=== PATIENT | female | born 1990 | race American Indian/Alaskan Native ===

== ENCOUNTER 2017-06-04 01:28 | Inpatient (IN) | payer BC, MEDICAID ==
[2017-06-04 01:42] VITALS: BMI 33.3
[2017-06-04] MEDS ORDERED: Lactated Ringer's 1,000 ML IV SCH (01:45)
[2017-06-04] MEDS ORDERED: Oxytocin 10 Units/ml Inj ONE (01:46)
[2017-06-04] MEDS ORDERED: Benzocaine/Menthol SPRAY TOP PRN ×2 (02:14→03:45)
[2017-06-04 02:20] LABS: BASO % 0.2 % (0.0-2.0); EOS % 0.3 % (0.0-4.0); HEMOGLOBIN 11.8 g/dL (12.0-16.0); LYMPH # 1.6 K/uL (1.0-4.3); LYMPH % 12.3 % (20.0-40.0); MEAN CELL VOLUME 82.3 fl (81.0-99.0); MEAN CORPUSCULAR HEMOGLOBIN 26.3 pg (27.0-31.0); MEAN CORPUSCULAR HGB CONC 31.9 g/dL (33.0-37.0); MEAN PLATELET VOLUME 10.8 fl (7.2-11.7); MONO # 0.6 K/uL (0.0-0.8); MONO % 5.1 % (0.0-10.0); NEUT # 10.4 K/uL (1.8-7.0); NEUT % 82.1 % (50.0-75.0); RBC 4.49 Mil/uL (3.80-5.20); WHITE BLOOD COUNT 12.6 K/uL (4.8-10.8)
[2017-06-04 02:32] VITALS: TEMP 98.9; O2SAT 100
[2017-06-04] MEDS: Multivitamin With Minerals Tab PO SCH (08:07)
[2017-06-04] MEDS ORDERED: Multivitamin With Minerals Tab PO SCH (09:00)
--- NOTE | 2017-06-04 09:58 | OBADHP ---
Datetime: 06/04/2017 04:05 Admit Comment, IP Provider: 26 yo at 40+1 weeks ga presented to [facility]- visibly uncomfortable and in d istress, complaining of contractions q2-3 min. Feels baby moving, denies loss of fluid. Pt stated she feels like she needs to push right away. care: [facility] GBS positive, HbsAg neg. 1st trimester HIV and RPR negative, third trimester HIV RPR unavailable. Obhx: , prior NVD, 1 TOP, 1 SAB Unable to obtain pt's whole history due to pt discomfort and stage of labor; will addendum SVE: 10cm, fully effaced, 0 station, membranes intact A: Admit to unit P: Expectant vaginal delivery; obtain HIV/RPR. Pt seen with Dr. Quijano. Pelvic Type - PN: Adequate Extremities - PN: Normal Neurologic - PN: Normal HEENT - PN: Normal General - PN: Normal Comments, ACOG Physical Exam: SVE: 10cm, fully effaced, 0 station, membranes intact Vital Signs Provider: Reviewed IP Chief Complaint: Uterine contractions Dilatation, Provider: 10 Effacement, Provider: 100 Station, Provider: 0 Genitourinary Exam: Normal DTRs - PN: Not Done EGA AdmitDate IP: 40.1 IP Adm Impression: Term, intrauterine IP Admit Plan: Admit to unit Datetime: 06/04/2017 02:15 Abdomen - PN: Not Done Back - PN: Not Done Breast - PN: Not Done Lungs - PN: Not Done Heart - PN: Not Done Thyroid - PN: Not Done
--- NOTE | 2017-06-04 10:01 | OBDS ---
DELIVERY PERSONNEL Delivery Doctor: Karla Quijano MD Blocker Hand: Lexy Patterson RN Resident: DERRICK Rider-1 MATERNAL INFORMATION Delivery Anesthesia: None Medications in Delivery: Oxytocin 20 units Estimated Blood Loss (ml): 200 Placenta Cultured: No Maternal Complications: Precipitous Labor (<3hrs) Provider Comments: Normal spontaneous vaginal delivery. Patient delivered a viable with Apgars of 9 and 9 at one and 5 minutes respectively. Placen ta delivered spontaneously. No lacerations, perineum intact. Uterus firm and appropriately hemostatic following delivery. No complications. Estimated blood loss 200 mL. LABOR SUMMARY EDC: 06/03/2017 00:00 No. Babies in Womb: 1 Attempted: No Labor Anesthesia: None LABOR INFORMATION Reason for Induction: Not Applicable Onset of Labor: 06/03/2017 19:00 Complete Dilatation: 06/04/2017 01:48 Oxytocin: N/A Group B Beta Strep: Positive Antibiotics # of Doses: 0 Steroids Given: None Reason Steroids Not Administered: Not Applicable MEMBRANES Membranes Rupture Method: Artificial Rupture of Membranes: 06/04/2017 01:48 Length of Rupture (hrs): 0.13 Amniotic Fluid Color: Clear Amniotic Fluid Amount: Large Amniotic Fluid Odor: Normal STAGES OF LABOR Stage 1 hrs: 6 Stage 1 min: 48 Stage 2 hrs: 0 Stage 2 min: 8 Stage 3 hrs: 0 Stage 3 min: 3 Total Time in Labor hrs: 6 Total Time in Labor min: 59 VAGINAL DELIVERY Episiotomy: None Laceration Extension: N/A Laceration Type: None Laceration Repair: Not Applicable Initial Vag Sponge Count: 5 Final Vag Sponge Count: 5 Initial Vag Sharps Count: 0 Final Vag Sharps Count: 0 Sponge Count Correct: N/A Sharps Count Correct: N/A BABY A INFORMATION Delivery Date/Time: 06/04/2017 01:56 Method of Delivery: Vaginal Born in Route : No : N/A Forceps: N/A Vacuum Extraction: N/A Shoulder Dystocia : No SHOULDER DYSTOCIA BABY A Delivery Date/Time: 06/04/2017 01:56 PRESENTATION/POSITION BABY A Presentation: Cephalic Cephalic Presentation: Vertex PLACENTA INFORMATION BABY A Placenta Delivery Time : 06/04/2017 01:59 Placenta Method of Delivery: Spontaneous Placenta Status: Delivered SCORES BABY A Heart Rate 1 min: >100 bpm Resp Effort 1 min: Good Cry Reflex Irritability 1 min: Cough or Sneeze or Pulls Away Muscle Tone 1 min: Active Motion Color 1 min: Body [place], Extremities Blue Resuscitation Effort 1 min: Tactile Stimulation SCORE 1 MIN: 9 Heart Rate 5 min: >100 bpm Resp Effort 5 min: Good Cry Reflex Irritability 5 min: Cough or Sneeze or Pulls Away Muscle Tone 5 min: Active Motion Color 5 min: Body [place], Extremities Blue Resuscitation Effort 5 min: Tactile Stimulation SCORE 5 MIN: 9 Color 10 min: Completely [place] INFANT INFORMATION BABY A Gestational Age at Delivery: 40.1 Gestational Status: Term Infant Outcome : Liveborn Condition : Stable Sex: Male IDENTIFICATION/MEDS BABY A ID Band Location: Left Leg; Left Arm WEIGHT/LENGTH BABY A Birthweight (gms): 3765 Weight (lb): 8 Infant Weight (oz): 5 CORD INFORMATION BABY A No. Cord Vessels: 3 Nuchal Cord : N/A Cord Blood Taken: Yes Infant Suction: Mouth
--- NOTE | 2017-06-04 11:29 | OBPPN ---
Datetime: 06/04/2017 11:08 PP Pain Prov: Within normal limits PP Nausea Prov: Denies PP Flatus Prov: Yes PP Breasts Prov: Not Done PP Heart Prov: Normal PP Lungs Prov: Normal PP Abdomen/Uterus Prov: Not Done PP Lochia Prov: Not Done PP Vulva/Perineum Prov: Not Done PP CVA Tenderness Prov: Normal PP Extremities Prov: Normal PP Impression Prov: Normal progression PP Plan Prov: Continue present management PP Progress Note Prov: Is doing well and voiding tolerating diet Vital signs stable afebrile Uterus firm below the umbilicus Extremities no Homans day 1 Ambulate, regular diet, analgesia as needed Vital Signs Provider PP: Reviewed
[2017-06-04 15:08] LABS: BASO # 0.1 K/uL (0.0-0.2); BASO % 0.3 % (0.0-2.0); EOS % 0.1 % (0.0-4.0); HEMOGLOBIN 11.3 g/dL (12.0-16.0); LYMPH % 12.3 % (20.0-40.0); MEAN CELL VOLUME 83.3 fl (81.0-99.0); MEAN CORPUSCULAR HEMOGLOBIN 27.1 pg (27.0-31.0); MEAN CORPUSCULAR HGB CONC 32.5 g/dL (33.0-37.0); MEAN PLATELET VOLUME 11.1 fl (7.2-11.7); MONO # 1.2 K/uL (0.0-0.8); MONO % 7.5 % (0.0-10.0); NEUT # 12.7 K/uL (1.8-7.0); NEUT % 79.8 % (50.0-75.0); RBC 4.18 Mil/uL (3.80-5.20); RED CELL DISTRIBUTION WIDTH 14.5 % (11.5-14.5); WHITE BLOOD COUNT 15.9 K/uL (4.8-10.8)
[2017-06-05] MEDS: Multivitamin With Minerals Tab PO SCH (09:49)
[2017-06-05] MEDS ORDERED: Influenza Vaccine 18yr & older 0.5 ML/45 MCG SYR IM ONE (16:33)
--- NOTE | 2017-06-06 07:45 | OBPPN ---
Datetime: 06/06/2017 07:40 PP Pain Prov: Within normal limits PP Abdomen/Uterus Prov: Normal PP Lochia Prov: Normal PP Extremities Prov: Normal PP Progress Prov: Normal PP Impression Prov: Normal progression PP Plan Prov: Discharge PP Progress Note Prov: PPD 2 s/p , doing well, breast and bottle feeding Discharge home today Vital Signs Provider PP: Within Normal Limits Datetime: 06/05/2017 08:16 PP Nausea Prov: Denies PP Flatus Prov: Yes PP BM Prov: Yes PP Breasts Prov: Not Done PP Heart Prov: Normal PP Lungs Prov: Normal PP Vulva/Perineum Prov: Not Done PP CVA Tenderness Prov: Not Done PP C/S Incision Prov: Not Applicable
[2017-06-06] MEDS: Multivitamin With Minerals Tab PO SCH (08:33)
[2017-06-06 20:18] VITALS: BP 126/73; PULSE 75; RESP 20
== END 2017-06-06 13:20 | disposition home or self-care (01) | DRG 373 ==
LOC: H.EROB2 01:28 → H.L&D 01:49 → H.OB/GYN 03:15
PROVIDERS: ADMIT Obstetrics & Gynecology; ATTEND Obstetrics & Gynecology
PROC: 10E0XZZ Delivery of Products of Conception, External Approach (ICD-10-PCS; principal; 2017-06-04)
PROC: 4A1HXCZ Monitoring of Products of Conception, Cardiac Rate, External Approach (ICD-10-PCS; 2017-06-04)
DX: O62.3 Precipitate labor (principal); Z37.0 Single live birth; Z3A.40 40 weeks gestation of pregnancy